=== PATIENT | female | born 1985 ===

== ENCOUNTER 2018-06-09 21:02 | Emergency (ER) | payer OTHER ==
[~2018-06-09] VITALS: Ht 160 cm; Wt 72.1 kg
[2018-06-09 21:09] VITALS: BP 113/55; PULSE 73; RESP 18; Ht 160 cm; Wt 72.1 kg
[2018-06-10] MEDS ORDERED: NITR-58 PO (01:23)
== END 2018-06-10 07:37 | disposition left against medical advice (07) ==
LOC: FTE 21:02
DX: O20.9 Hemorrhage in early pregnancy, unspecified (principal); Z3A.08 8 weeks gestation of pregnancy
CPT/HCPCS: 36415; 76805; 81001; 84702; 85025; 86900; 86901